=== PATIENT | male | born 1955 | race Hispanic/Latino ===

== ENCOUNTER 2017-05-26 12:51 | Emergency (ER) | payer SELFPAY ==
--- NOTE | 2017-05-26 13:50 | RAD ---
LEFT TIBIA AND FIBULA: History: Pain, injury at work. FINDINGS: No evidence of fracture. No osseous lesion identified. There is bandage material at the knee which ob scures the proximal aspects of the tibia and fibula. If there is concern for fracture at the knee rec ommend dedicated knee exam with obliques. IMPRESSION: No definite acute process. Proximal tibia and fibula are not adequately evaluated and recommend clini eron correlation. POS: JULIS[facility]
[2017-05-26] MEDS ORDERED: Bacitracin Zinc Ointment 30 gm TUBE ONE (16:20)
== END 2017-05-26 16:34 | disposition home or self-care (01) ==
LOC: SCSER 12:51
DX: S81.812A Laceration without foreign body, left lower leg, initial encounter (principal); F17.210 Nicotine dependence, cigarettes, uncomplicated; W29.3XXA Contact with powered garden and outdoor hand tools and machinery, initial encounter
CPT/HCPCS: 12035

== ENCOUNTER 2021-06-26 15:12 | Emergency (ER) | payer SELFPAY ==
[~2021-06-26 15:12] MED LIST: Iopamidol-370 76% 500 ML 1 ML ONE
[2021-06-26 16:38] LABS: #Lymphocytes 1.3 thou/uL (1.20-3.40); #Monocytes 0.7 thou/uL (0.11-0.59); #Neutrophils 3.3 thou/uL (1.40-6.50); %Basophils 0.9 % (0.0-1.0); %Eosinophils 0.3 % (0.0-10.0); %Lymphocytes 23.8 % (21.0-51.0); %Monocytes 12.4 % (0.0-10.0); %Neutrophils 62.7 % (42.0-75.0); Mean Corpuscular HGB CONC 36.3 g/dL (32.0-36.0); Mean Corpuscular Volume 96.3 fL (78.0-98.0); Mean Platelet Volume 7.8 fL (7.4-10.4); Platelet Count 219 thou/uL (130-400); RBC Distribution Width 10.9 % (11.5-14.5); Red Blood Cell (RBC) Count 3.72 mill/uL (4.70-6.10); White Blood Cell (WBC) Count 5.3 thou/uL (4.8-10.8)
[2021-06-26 16:54] LABS: ALT (SGPT) 132 U/L (8-55); AST (SGOT) 123 U/L (5-34); Albumin 3.7 g/dL (3.4-4.8); Alkaline Phosphatase 48 U/L (40-110); Anion Gap 12 mmol/L (10-20); BUN (Urea Nitrogen) 9 mg/dL (8.4-25.7); Bilirubin, Total 0.8 mg/dL (0.2-1.2); Calc. Creatinine Clearance 0 mL/min (70-130); Calcium 8.6 mg/dL (7.8-10.44); Carbon Dioxide 26 mmol/L (23-31); Chloride 96 mmol/L (98-107); Globulin 3.6 g/dL (2.4-3.5); Glucose 126 mg/dL (80-115); Lipase 47 U/L (8-78); Potassium 4.1 mmol/L (3.5-5.1); Protein, Total 7.3 g/dL (5.8-8.1); Sodium 130 mmol/L (136-145)
[2021-06-26] MEDS ORDERED: Morphine 4 MG/ML VIAL ONE (16:54)
[2021-06-26] MEDS ORDERED: Ondansetron PF 4 MG/2 ML Vial ONE (16:54)
[2021-06-26] MEDS ORDERED: Acetaminophen 500 MG TAB ONE (16:54)
[2021-06-26] MEDS ORDERED: Piperacillin/Tazobactam 3.375 GM VIAL ONE (16:54)
[2021-06-26 18:42] LABS: Bilirubin Negative (Negative); Blood, Urine Negative (Negative); Clarity Clear (Clear); Glucose, Urine (Dipstick) Normal (Negative); Ketone, Urine Negative (Negative); Leukocyte Negative Leu/uL (Negative); Nitrite Negative (Negative); Protein, Urine (Dipstick) Negative (Neg-Trace); Specific Gravity, Urine 1.015 (1.002-1.036); Urobilinogen Normal mg/dL (Less than 2)
[2021-06-27 09:43] LABS: SARS-CoV-2 PCR by NAA DETECTED (NotDetected)
== END 2021-06-26 18:40 | disposition home or self-care (01) ==
LOC: ERS 15:12
DX: U07.1 COVID-19 (principal); E86.0 Dehydration; F17.210 Nicotine dependence, cigarettes, uncomplicated
CPT/HCPCS: 36415; 74177; 76705; 80053; 81003; 83690; 83735; 85025; 94760; 96365; 96366; 96375; J2270; J2405; J2543; Q9967; U0003; U0005